=== PATIENT | male | born 1955 | race Caucasian/White ===

== ENCOUNTER 2018-06-01 13:20 | Outpatient (CLI) | payer OTHER | END 2018-06-01 13:32 | disposition home or self-care (01) | LOC: RAD 13:20 | DX: R07.89 Other chest pain (principal) ==

== ENCOUNTER 2019-10-20 09:46 | Outpatient (CLI) | payer OTHER | END 2019-10-20 09:53 | disposition home or self-care (01) | LOC: RAD 09:46 | PROVIDERS: ATTEND Internal Medicine Cardiovascular Disease | DX: J44.9 Chronic obstructive pulmonary disease, unspecified (principal) ==

== ENCOUNTER 2019-10-21 10:51 | Outpatient (CLI) | payer OTHER | END 2019-10-21 11:13 | disposition home or self-care (01) | LOC: NUCLEAR 10:51 | PROVIDERS: ATTEND Internal Medicine Cardiovascular Disease | DX: I10 Essential (primary) hypertension (principal); J44.9 Chronic obstructive pulmonary disease, unspecified ==

== ENCOUNTER 2019-10-28 09:51 | Outpatient (CLI) | payer OTHER | END 2019-10-28 17:10 | disposition home or self-care (01) | LOC: TOM 09:51 | PROVIDERS: ATTEND Internal Medicine Cardiovascular Disease | DX: J44.9 Chronic obstructive pulmonary disease, unspecified (principal) ==